=== PATIENT | female | born 1990 | race Caucasian/White ===

== ENCOUNTER → 2016-02-17 | Outpatient (CLI) | payer BC ==
[~2016-02-17] MED LIST: APRI 0.15 MG-0.1 TAB PO; MULTIPLE VITAMI1 TAB PO; NORCO 325 MG-7.1 TAB PO; PERCOCET 325 MG1 TA2 PO; ZOFRAN 4MG T4 MG/TAB PO; ZOFRAN ODT4 MG PO
== END ==
LOC: BHSO 08:49
DX: F41.1 Generalized anxiety disorder (principal)

== ENCOUNTER → 2016-03-02 | Outpatient (CLI) | payer BC | LOC: BHSO 14:55 | DX: F41.1 Generalized anxiety disorder (principal) ==

== ENCOUNTER → 2016-03-16 | Outpatient (CLI) | payer BC | LOC: BHSO 14:50 | DX: F41.1 Generalized anxiety disorder (principal) ==

== ENCOUNTER → 2016-03-30 | Outpatient (CLI) | payer BC | LOC: BHSO 13:25 | DX: F41.1 Generalized anxiety disorder (principal) ==

== ENCOUNTER → 2016-04-11 | Outpatient (CLI) | payer BC | LOC: BHSO 08:54 | DX: F41.1 Generalized anxiety disorder (principal) ==

== ENCOUNTER → 2016-04-27 | Outpatient (CLI) | payer BC | LOC: BHSO 14:55 | DX: F41.1 Generalized anxiety disorder (principal) ==

== ENCOUNTER → 2016-08-21 | Outpatient (CLI) | payer OTHER | LOC: BHSO 10:59 | DX: F41.1 Generalized anxiety disorder (principal) ==

== ENCOUNTER → 2016-08-28 | Outpatient (CLI) | payer OTHER | LOC: BHSO 13:55 | DX: F41.1 Generalized anxiety disorder (principal) ==

== ENCOUNTER → 2016-09-20 | Outpatient (CLI) | payer OTHER | LOC: BHSO 14:56 | DX: F41.1 Generalized anxiety disorder (principal) ==

== ENCOUNTER → 2016-10-05 | Outpatient (CLI) | payer OTHER | LOC: BHSO 13:54 | DX: F41.1 Generalized anxiety disorder (principal) ==

== ENCOUNTER → 2016-10-22 | Outpatient (CLI) | payer OTHER | LOC: BHSO 08:56 | DX: F41.1 Generalized anxiety disorder (principal) ==

== ENCOUNTER → 2016-11-01 | Outpatient (CLI) | payer OTHER | LOC: BHSO 12:52 | DX: F41.1 Generalized anxiety disorder (principal) ==

== ENCOUNTER → 2016-11-16 | Outpatient (CLI) | payer OTHER | LOC: BHSO 09:56 | DX: F41.1 Generalized anxiety disorder (principal) ==

== ENCOUNTER → 2016-11-29 | Outpatient (CLI) | payer OTHER | LOC: BHSO 08:54 | DX: F41.1 Generalized anxiety disorder (principal) ==

== ENCOUNTER → 2016-12-27 | Outpatient (CLI) | payer OTHER | LOC: BHSO 09:54 | DX: F41.1 Generalized anxiety disorder (principal) ==

== ENCOUNTER → 2017-01-10 | Outpatient (CLI) | payer OTHER | LOC: BHSO 10:07 | DX: F33.1 Major depressive disorder, recurrent, moderate (principal) ==

== ENCOUNTER → 2017-01-22 | Outpatient (CLI) | payer OTHER | LOC: BHSO 15:50 | DX: F33.1 Major depressive disorder, recurrent, moderate (principal) ==

== ENCOUNTER → 2017-02-14 | Outpatient (CLI) | payer OTHER | LOC: BHSO 09:58 | DX: F33.1 Major depressive disorder, recurrent, moderate (principal) ==

== ENCOUNTER → 2017-02-26 | Outpatient (CLI) | payer OTHER | LOC: BHSO 09:01 | DX: F33.1 Major depressive disorder, recurrent, moderate (principal) ==

== ENCOUNTER → 2017-03-15 | Outpatient (CLI) | payer OTHER | LOC: BHSO 09:54 | DX: F41.1 Generalized anxiety disorder (principal) ==

== ENCOUNTER → 2017-04-04 | Outpatient (CLI) | payer OTHER | LOC: BHSO 10:04 | DX: F33.0 Major depressive disorder, recurrent, mild (principal) ==

== ENCOUNTER → 2017-04-29 | Outpatient (CLI) | payer OTHER | LOC: BHSO 08:55 | DX: F41.1 Generalized anxiety disorder (principal) ==

== ENCOUNTER → 2017-05-16 | Outpatient (CLI) | payer OTHER | LOC: BHSO 08:57 | DX: F41.1 Generalized anxiety disorder (principal) ==

== ENCOUNTER → 2017-06-20 | Outpatient (CLI) | payer OTHER | LOC: BHSO 09:55 | DX: F41.1 Generalized anxiety disorder (principal) ==

== ENCOUNTER → 2017-07-04 | Outpatient (CLI) | payer OTHER | LOC: BHSO 08:51 | DX: F41.1 Generalized anxiety disorder (principal) ==

== ENCOUNTER → 2017-07-12 | Outpatient (CLI) | payer OTHER | LOC: BHSO 09:50 | DX: F41.1 Generalized anxiety disorder (principal) ==

== ENCOUNTER → 2017-07-25 | Outpatient (CLI) | payer OTHER | LOC: BHSO 09:05 | DX: F41.1 Generalized anxiety disorder (principal) ==

== ENCOUNTER → 2017-08-08 | Outpatient (CLI) | payer OTHER | LOC: BHSO 09:26 | DX: F41.1 Generalized anxiety disorder (principal) ==

== ENCOUNTER → 2017-08-29 | Outpatient (CLI) | payer OTHER | LOC: BHSO 08:53 | DX: F41.1 Generalized anxiety disorder (principal) ==

== ENCOUNTER → 2017-09-12 | Outpatient (CLI) | payer OTHER | LOC: BHSO 08:50 | DX: F41.1 Generalized anxiety disorder (principal) ==

== ENCOUNTER → 2017-09-26 | Outpatient (CLI) | payer OTHER | LOC: BHSO 14:51 | DX: F41.1 Generalized anxiety disorder (principal) ==

== ENCOUNTER → 2017-10-09 | Outpatient (CLI) | payer OTHER | LOC: BHSO 14:46 | DX: F41.1 Generalized anxiety disorder (principal) ==

== ENCOUNTER → 2017-11-08 | Outpatient (CLI) | payer OTHER | LOC: BHSO 14:50 | DX: F41.1 Generalized anxiety disorder (principal) ==

== ENCOUNTER → 2017-11-22 | Outpatient (CLI) | payer OTHER | LOC: BHSO 14:49 | DX: F41.1 Generalized anxiety disorder (principal) ==

== ENCOUNTER → 2017-11-29 | Outpatient (CLI) | payer OTHER | LOC: BHSO 14:49 | DX: F41.1 Generalized anxiety disorder (principal) ==

== ENCOUNTER → 2017-12-06 | Outpatient (CLI) | payer OTHER | LOC: BHSO 14:54 | DX: F41.1 Generalized anxiety disorder (principal) ==

== ENCOUNTER → 2017-12-18 | Outpatient (CLI) | payer OTHER | LOC: BHSO 14:52 | DX: F41.1 Generalized anxiety disorder (principal) ==

== ENCOUNTER → 2018-01-09 | Outpatient (CLI) | payer OTHER | LOC: BHSO 14:56 | DX: F41.1 Generalized anxiety disorder (principal) ==

== ENCOUNTER → 2018-01-31 | Outpatient (CLI) | payer OTHER | LOC: BHSO 14:50 | DX: F41.1 Generalized anxiety disorder (principal) ==

== ENCOUNTER → 2018-03-14 | Outpatient (CLI) | payer BC | LOC: BHSO 14:49 | DX: F41.1 Generalized anxiety disorder (principal) ==

== ENCOUNTER → 2018-03-27 | Outpatient (CLI) | payer BC | LOC: BHSO 13:56 | DX: F41.1 Generalized anxiety disorder (principal) ==

== ENCOUNTER → 2018-04-17 | Outpatient (CLI) | payer BC | LOC: BHSO 15:56 | DX: F41.1 Generalized anxiety disorder (principal) ==

== ENCOUNTER → 2018-05-08 | Outpatient (CLI) | payer BC | LOC: BHSO 13:53 | DX: F41.1 Generalized anxiety disorder (principal) ==

== ENCOUNTER → 2018-05-22 | Outpatient (CLI) | payer BC | LOC: BHSO 13:49 | DX: F41.1 Generalized anxiety disorder (principal) ==

== ENCOUNTER → 2018-06-05 | Outpatient (CLI) | payer BC | LOC: BHSO 13:59 | DX: F41.1 Generalized anxiety disorder (principal) ==

== ENCOUNTER → 2018-06-09 | Outpatient (CLI) | payer BC | LOC: BHSO 12:56 | DX: F41.1 Generalized anxiety disorder (principal) ==

== ENCOUNTER → 2018-06-26 | Outpatient (CLI) | payer BC | LOC: BHSO 14:48 | DX: F41.1 Generalized anxiety disorder (principal) ==

== ENCOUNTER → 2018-07-11 | Outpatient (CLI) | payer BC | LOC: BHSO 14:51 | DX: F41.1 Generalized anxiety disorder (principal) ==

== ENCOUNTER → 2018-07-24 | Outpatient (CLI) | payer BC | LOC: BHSO 14:01 | DX: F41.1 Generalized anxiety disorder (principal) ==

== ENCOUNTER → 2018-08-18 | Outpatient (CLI) | payer BC | LOC: BHSO 08:59 | DX: F41.1 Generalized anxiety disorder (principal) ==

== ENCOUNTER → 2018-09-01 | Outpatient (CLI) | payer BC | LOC: BHSO 13:51 | DX: F41.1 Generalized anxiety disorder (principal) ==

== ENCOUNTER → 2018-09-22 | Outpatient (CLI) | payer BC | LOC: BHSO 13:51 | DX: F41.1 Generalized anxiety disorder (principal) ==

== ENCOUNTER → 2018-10-10 | Outpatient (CLI) | payer BC | LOC: BHSO 10:53 | DX: F41.1 Generalized anxiety disorder (principal) ==

== ENCOUNTER → 2018-10-31 | Outpatient (CLI) | payer BC | LOC: BHSO 08:57 | DX: F41.1 Generalized anxiety disorder (principal) ==

== ENCOUNTER → 2018-11-21 | Outpatient (CLI) | payer BC, OTHER | LOC: BHSO 08:56 | DX: F41.1 Generalized anxiety disorder (principal) ==

== ENCOUNTER → 2018-11-25 | Outpatient (CLI) | payer OTHER, BC | LOC: COL.RAD 14:45 | DX: F07.81 Postconcussional syndrome (principal); V89.2XXA Person injured in unspecified motor-vehicle accident, traffic, initial encounter ==

== ENCOUNTER → 2018-12-05 | Outpatient (CLI) | payer BC, OTHER | LOC: BHSO 08:51 | DX: F41.1 Generalized anxiety disorder (principal) ==

== ENCOUNTER → 2018-12-19 | Outpatient (CLI) | payer BC, OTHER | LOC: BHSO 08:55 | DX: F90.0 Attention-deficit hyperactivity disorder, predominantly inattentive type (principal) | CPT/HCPCS: G0463 ==

== ENCOUNTER → 2019-01-12 | Outpatient (CLI) | payer BC, OTHER | LOC: BHSO 08:57 | DX: F41.1 Generalized anxiety disorder (principal) ==

== ENCOUNTER → 2019-01-30 | Outpatient (CLI) | payer BC, OTHER | LOC: BHSO 12:53 | DX: F41.1 Generalized anxiety disorder (principal) ==

== ENCOUNTER → 2019-04-22 | Outpatient (CLI) | payer SELFPAY | LOC: BHSO 14:53 | DX: F41.1 Generalized anxiety disorder (principal) ==

== ENCOUNTER → 2019-05-05 | Outpatient (CLI) | payer SELFPAY | LOC: BHSO 13:53 | DX: F41.1 Generalized anxiety disorder (principal) ==

== ENCOUNTER → 2019-05-20 | Outpatient (CLI) | payer BC | LOC: BHSO 08:51 | DX: F41.1 Generalized anxiety disorder (principal) ==

== ENCOUNTER → 2019-06-15 | Outpatient (CLI) | payer BC | LOC: BHSO 15:55 | DX: F33.1 Major depressive disorder, recurrent, moderate (principal) ==

== ENCOUNTER → 2019-06-29 | Outpatient (CLI) | payer BC | LOC: BHSO 10:59 | DX: F41.1 Generalized anxiety disorder (principal) ==

== ENCOUNTER → 2019-07-07 | Outpatient (CLI) | payer BC | LOC: BHSO 12:58 | DX: F41.1 Generalized anxiety disorder (principal) ==

== ENCOUNTER → 2019-07-20 | Outpatient (CLI) | payer BC | LOC: BHSO 12:58 | DX: F41.1 Generalized anxiety disorder (principal) ==

== ENCOUNTER → 2019-08-03 | Outpatient (CLI) | payer BC | LOC: BHSO 08:56 | DX: F41.8 Other specified anxiety disorders (principal) ==

== ENCOUNTER → 2019-08-24 | Outpatient (CLI) | payer BC | LOC: BHSO 10:53 | DX: F41.1 Generalized anxiety disorder (principal) ==

== ENCOUNTER → 2019-08-31 | Outpatient (CLI) | payer BC | LOC: BHSO 09:00 | DX: F41.1 Generalized anxiety disorder (principal) ==

== ENCOUNTER → 2019-09-18 | Outpatient (CLI) | payer BC | LOC: BHSO 08:54 | DX: F41.1 Generalized anxiety disorder (principal) ==

== ENCOUNTER → 2019-09-30 | Outpatient (CLI) | payer BC | LOC: BHSO 08:51 | DX: F41.1 Generalized anxiety disorder (principal) ==

== ENCOUNTER → 2019-10-14 | Outpatient (CLI) | payer BC | LOC: BHSO 08:59 | DX: F41.1 Generalized anxiety disorder (principal) ==

== ENCOUNTER → 2019-10-28 | Outpatient (CLI) | payer BC | LOC: BHSO 08:52 | DX: F41.1 Generalized anxiety disorder (principal) ==

== ENCOUNTER → 2019-11-11 | Outpatient (CLI) | payer BC | LOC: BHSO 08:50 | DX: F41.1 Generalized anxiety disorder (principal) ==

== ENCOUNTER → 2019-12-02 | Outpatient (CLI) | payer BC | LOC: BHSO 08:52 | DX: F41.1 Generalized anxiety disorder (principal) ==